=== PATIENT | female | born 1985 | race Caucasian/White ===

== ENCOUNTER 2019-09-15 07:30 | Emergency (ER) | payer BC, OTHER ==
[~2019-09-15] VITALS: Ht 162 cm; Wt 63.0 kg
[~2019-09-15 07:30] MED LIST: SULF-222 PO
[2019-09-15] MEDS ORDERED: LACTATED RINGERS 1,000 ML IV ONE ×2 (08:24→10:00)
[2019-09-15 08:39] LABS: BASOPHILS % (AUTO) 0 % (0-10); EOSINOPHILS # (AUTO) 0.2 10^3/uL (0.0-0.3); EOSINOPHILS % (AUTO) 2 % (0-10); HEMATOCRIT 38 % (35-52); HEMOGLOBIN 12.5 G/DL (11.5-16.0); LYMPHOCYTES # (AUTO) 1.1 X 10^3 (1.0-4.0); LYMPHOCYTES % (AUTO) 13 % (12-44); MEAN CORPUSCULAR HEMOGLOBIN 30 PG (25-34); MEAN CORPUSCULAR HGB CONC 33 G/DL (32-36); MEAN CORPUSCULAR VOLUME 90 FL (80-99); MEAN PLATELET VOLUME 12.8 FL (7.4-10.4); MONOCYTES # (AUTO) 0.5 X 10^3 (0.0-1.0); MONOCYTES % (AUTO) 6 % (0-12); NEUTROPHILS # (AUTO) 6.4 X 10^3 (1.8-7.8); NEUTROPHILS % (AUTO) 79 % (42-75); PLATELET COUNT 215 10^3/uL (130-400); RED CELL DISTRIBUTION WIDTH 13.4 % (10.0-14.5); WHITE BLOOD COUNT 8.1 10^3/uL (4.3-11.0)
[2019-09-15 08:51] LABS: ALANINE AMINOTRANSFERASE 65 U/L (0-55); ALBUMIN 3.6 GM/DL (3.2-4.5); ALKALINE PHOSPHATASE 107 U/L (40-136); BILIRUBIN,TOTAL 0.5 MG/DL (0.1-1.0); BUN/CREATININE RATIO 13; CALCIUM 8.9 MG/DL (8.5-10.1); CARBON DIOXIDE 20 MMOL/L (21-32); CHLORIDE 111 MMOL/L (98-107); CREATININE SERUM 0.72 MG/DL (0.60-1.30); GFR ESTIMATED > 60; GLUCOSE 87 MG/DL (70-105); MAGNESIUM 1.9 MG/DL (1.6-2.4); SODIUM 140 MMOL/L (135-145)
--- NOTE | 2019-09-15 09:02 | ED Syncope ---
General Chief Complaint: Dizziness/Syncope Stated Complaint: DIZZINESS;FAINTING Nursing Triage Note: PT STATES WOKE UP THIS AM AND HAD SYNCOPAL EPISODE, FELL AND HIT NOSE WHEN FELL. CONT TO BE DIZZY AT THIS X Source of Information: Patient Exam Limitations: No Limitations (DILLAN RYDER) History of Present Illness Date Seen by Provider: Sep 15, 2019 Time Seen by Provider: 07:57 Initial Comments This is a 35 y/o female here s/p 2-3 episodes of syncope x1 day. has been tired last night. Woke up this AM with severe watery diarrhea after which she had the syncopal episodes. 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 pt also reports frequent syncopal episodes in the summer 12/13 heat and dehydration. pt denies any preceding sx before LOC, bowel or bladder incontinence afterwards, hitting her head, or any seizure like episodes. Pt also denies any hematochezia, N/V, fever, chills, recent unexpected wt loss, dysuria, or hematuria. Pt does admit to feeling dizzy and notes she was not able to produce enough blood this AM to do a finger stick blood sugar test. Pt further denies recent easy bruising, leg swelling, vision loss, hair loss, easy/prolonged bleeding, or steatorrhea. Timing/Prior Episodes: Multiple Episodes Today, Other (multiple episodes this summer) Symptoms Prior to Episode: None Precipitating Factors: None Loss of Consciousness: Brief (Seconds) Current Symptoms: No Blurred Vision, No Chest Pain, No Diaphoresis; Dizziness; No Loss of Bladder Control, No Loss of Bowel Control, No Nausea; Pale (DILLAN RYDER) Initial Comments Here with report of brief episodes of syncope that occurred after watery diarrhea. Does have history of surgery as noted above and seems to have some problems with dehydration and/or heat tolerance. Reports taking her vitamins as directed. Denies blood in her urine or stool. Timing/Prior Episodes: Multiple Episodes Today Precipitating Factors: Other (bowel movement) Loss of Consciousness: Brief (Seconds) Current Symptoms: Pale, Weakness (BOWEN REYNOSO MD) Allergies and Home Medications Allergies Coded Allergies: No Known Drug Allergies (Unverified , 03/15/15) Home Medications No Active Prescriptions or Reported Meds Patient Home Medication List Home Medication List Reviewed: Yes (DILLAN RYDER) Home Medication List Reviewed: Yes (BOWEN REYNOSO MD) Review of Systems Constitutional: No chills, No diaphoresis; dizziness; No fever, No weight gain, No weight loss EENTM: No blurred vision, No double vision, No vision loss, No epistaxis Respiratory: No cough, No dyspnea on exertion, No hemoptysis, No orthopnea; short of breath Cardiovascular: No chest pain, No edema, No palpitations; syncope Gastrointestinal: No abdominal pain, No constipation; diarrhea; No jaundice, No nausea, No vomiting Genitourinary: No dysuria, No frequency, No hematuria, No incontinence Control/STD Prophylaxis: None Musculoskeletal: No muscle stiffness, No muscle cramps Skin: No dryness, No pruritus, No rash (DILLAN RYDER) Constitutional: see HPI Cardiovascular: see HPI; No chest pain, No edema Gastrointestinal: No abdominal pain, No nausea, No vomiting Genitourinary: no symptoms reported (BOWEN REYNOSO MD) All Other Systems Reviewed Negative Unless Noted: Yes (BOWEN REYNOSO MD) Past Gqjhijb-Dnxvwx-Vicjzj Hx Past Med/Social Hx: Reviewed Nursing Past Med/Soc Hx (BOWEN REYNOSO MD) Patient Social History Alcohol Use: Denies Use Recreational Drug Use: No Smoking Status: Never a Smoker Recent Foreign Travel: No Contact w/Someone Who Travel: No Recent Infectious Disease Expo: No Recent Hopitalizations: No Physical Abuse: No Sexual Abuse: No (DILLAN RYDER) Seasonal Allergies Seasonal Allergies: No (DILLAN RYDER) Past Medical History Surgeries: Yes (duodenal switch, oral surg) Adenoidectomy, Gallbladder, Tonsillectomy Respiratory: No Cardiac: No Neurological: No Reproductive Disorders: No Gastrointestinal: Yes Irritable Bowel Musculoskeletal: No Endocrine: No Cancer: No Psychosocial: No Integumentary: No Blood Disorders: No Adverse Reaction/Blood Tranf: No (DILLAN RYDER) Family Medical History Reviewed Nursing Family Hx (BOWEN REYNOSO MD) Physical Exam Vital Signs Vital Signs - First Documented 09/15/19 07:35 Temp 35.8 Pulse 67 Resp 18 B/P (MAP) 102/59 (73) Pulse Ox 100 (BOWEN REYNOSO MD) Vital Signs Capillary Refill : Less Than 3 Seconds (DILLAN RYDER [facility]) Height, Weight, BMI Height: 5'4" Weight: 290lbs. oz. 131.448950ue; 24.00 BMI Method:Stated General Appearance: No Apparent Distress, WD/WN HEENT: Normal ENT Inspection, Pharynx Normal, Pale Conjunctivae (R) Neck: Normal Inspection, Non Tender, Supple Cardiovascular: Regular Rate, Rhythm, No Edema, No Gallop, No JVD, No Murmur, Normal Peripheral Pulses Respiratory: Chest Non Tender, Lungs Clear, Normal Breath Sounds, No Accessory Muscle Use, No Respiratory Distress Gastrointestinal: Normal Bowel Sounds, No Organomegaly, No Pulsatile Mass, Non Tender, Soft Back: Normal Inspection, No CVA Tenderness, No Vertebral Tenderness Extremities: Normal Capillary Refill, Normal Inspection, Normal Range of Motion, Non Tender, No Calf Tenderness, No Pedal Edema Neurologic/Psychiatric: Alert, Oriented x3 Cranial Nerves: Normal Hearing, Normal Speech, PERRL Motor/Sensory: No Motor Deficit, No Sensory Deficit Skin: Warm/Dry; No Ecchymosis, No Jaundice; Pallor Lymphatic: No Adenopathy (DILLAN RYDER [facility]) General Appearance: No Apparent Distress, WD/WN HEENT: PERRL/EOMI, Pharynx Normal Neck: Non Tender, Supple Cardiovascular: Regular Rate, Rhythm, No Murmur Respiratory: Lungs Clear, Normal Breath Sounds Gastrointestinal: Non Tender, Soft Back: Normal Inspection, No CVA Tenderness, No Vertebral Tenderness Extremities: Normal Range of Motion, Non Tender Neurologic/Psychiatric: Alert, Oriented x3 Cranial Nerves: Normal Hearing, Normal Speech, PERRL Motor/Sensory: No Motor Deficit, No Sensory Deficit Skin: Warm/Dry, Pallor (BOWEN REYNOSO MD) Progress/Results/Core Measures Results/Orders Lab Results Laboratory Tests Test 09/15/19 07:40 09/15/19 10:18 Range/Units White Blood Count 8.1 4.3-11.0 10^3/uL Red Blood Count 4.22 L 4.35-5.85 10^6/uL Hemoglobin 12.5 11.5-16.0 G/DL Hematocrit 38 35-52 % Mean Corpuscular Volume 90 80-99 FL Mean Corpuscular Hemoglobin 30 25-34 PG Mean Corpuscular Hemoglobin Concent 33 32-36 G/DL Red Cell Distribution Width 13.4 10.0-14.5 % Platelet Count 215 130-400 10^3/uL Mean Platelet Volume 12.8 H 7.4-10.4 FL Neutrophils (%) (Auto) 79 H 42-75 % Lymphocytes (%) (Auto) 13 12-44 % Monocytes (%) (Auto) 6 0-12 % Eosinophils (%) (Auto) 2 0-10 % Basophils (%) (Auto) 0 0-10 % Neutrophils # (Auto) 6.4 1.8-7.8 X 10^3 Lymphocytes # (Auto) 1.1 1.0-4.0 X 10^3 Monocytes # (Auto) 0.5 0.0-1.0 X 10^3 Eosinophils # (Auto) 0.2 0.0-0.3 10^3/uL Basophils # (Auto) 0.0 0.0-0.1 10^3/uL Sodium Level 140 135-145 MMOL/L Potassium Level 4.0 3.6-5.0 MMOL/L Chloride Level 111 H 98-107 MMOL/L Carbon Dioxide Level 20 L 21-32 MMOL/L Anion Gap 9 5-14 MMOL/L Blood Urea Nitrogen 9 7-18 MG/DL Creatinine 0.72 0.60-1.30 MG/DL Estimat Glomerular Filtration Rate > 60 BUN/Creatinine Ratio 13 Glucose Level 87 70-105 MG/DL Calcium Level 8.9 8.5-10.1 MG/DL Corrected Calcium 9.2 8.5-10.1 MG/DL Magnesium Level 1.9 1.6-2.4 MG/DL Total Bilirubin 0.5 0.1-1.0 MG/DL Aspartate Amino Transf (AST/SGOT) 56 H 5-34 U/L Alanine Aminotransferase (ALT/SGPT) 65 H 0-55 U/L Alkaline Phosphatase 107 40-136 U/L Total Protein 6.0 L 6.4-8.2 GM/DL Albumin 3.6 3.2-4.5 GM/DL Thyroid Stimulating Hormone (TSH) 0.16 L 0.35-4.94 UIU/ML Free Thyroxine 0.71 0.70-1.48 NG/DL Urine Color YELLOW Urine Clarity CLEAR Urine pH 6 5-9 Urine Specific [place] 1.015 L 1.016-1.022 Urine Protein 1+ H NEGATIVE Urine Glucose (UA) NEGATIVE NEGATIVE Urine Ketones NEGATIVE NEGATIVE Urine Nitrite NEGATIVE NEGATIVE Urine Bilirubin NEGATIVE NEGATIVE Urine Urobilinogen NORMAL NORMAL MG/DL Urine Leukocyte Esterase 1+ H NEGATIVE Urine RBC (Auto) NEGATIVE NEGATIVE Urine RBC NONE /HPF Urine WBC 2-5 /HPF Urine Squamous Epithelial Cells 2-5 /HPF Urine Crystals NONE /LPF Urine Bacteria FEW H /HPF Urine Casts NONE /LPF Urine Mucus MODERATE H /LPF Urine Culture Indicated YES (BOWEN REYNOSO MD) My Orders Orders - BOWEN REYNOSO MD Cbc With Automated Diff (09/15/19 08:24) Comprehensive Metabolic Panel (09/15/19 08:24) Magnesium (09/15/19 08:24) Thyroid Stimulating Hormone (09/15/19 08:24) Ua Culture If Indicated (09/15/19 08:24) Ed Iv/Invasive Line Start (09/15/19 08:24) Lactated Ringers (Lr 1000 Ml Iv Solution (09/15/19 08:24) Urine Bedside (09/15/19 08:24) Ekg Tracing (09/15/19 08:24) Free T4 (Free Thyroxine) (09/15/19 09:20) Lactated Ringers (Lr 1000 Ml Iv Solution (09/15/19 10:00) Urine Culture (09/15/19 10:18) (BOWEN REYNOSO MD) Medications Given in ED Current Medications Medications Dose Ordered Sig/Jaxon Route Start Time Stop Time Status Last Admin Dose Admin Lactated Ringer's 1,000 ml @ 0 mls/hr Q0M ONCE IV 09/15/19 08:24 09/15/19 08:30 DC 09/15/19 08:40 1,000 MLS/HR Lactated Ringer's 1,000 ml @ 0 mls/hr Q0M ONCE IV 09/15/19 10:00 09/15/19 10:01 DC 09/15/19 10:15 1,000 MLS/HR (BOWEN REYNOSO MD) Vital Signs/I&O 09/15/19 07:35 Temp 35.8 Pulse 67 Resp 18 B/P (MAP) 102/59 (73) Pulse Ox 100 (BOWEN REYNOSO MD) Blood Pressure Mean: 73 POS Progress Progress Note : Time: 07:57 Progress Note 1)Seen and evaluated pt. pt has findings consistent with dehydration as well as anemia. Will evaluate pt for anemia, dehydration, electrolyte abnormalities, liver and thyroid dysfunction, and . Will give IVF LR, and test CBC, CMP, EKG. May need outpatient Iron and B12 studies. All the findings and concerns were discussed with patient and family who agree with plan. 2)Pt feeling better after IVF. CBC was normal. CMP was remarkable for low TSH and mildly low total protein and moderate transaminitis. Will order Free T4 levels at this time. test still pending. (DILLAN RYDER) Progress Note : Progress Note Have seen and evaluated the patient and agree with above except as indicated. I have directed the plan of care. Patient is here with concerns of dehydration and syncope. Orthostatic vital signs done and are positive with respect to heart rate increasing greater than 20 points on standing. IV, labs, UA and UCG ordered. LR 1 L bolus ordered. 0930: TSH is low and we will evaluate free T4. Hemoglobin normal. Patient is feeling a little better. Monitor patient. 1105: Overall feeling better. Fluids nearly complete. She reports that she now follows at the [facility] for [facility] I will send a copy of the chart over to the [facility] to be put in her records. Free T4 is normal. She may need further workup related to thyroid but at this point everything else looks okay and she may be safely discharged home. Patient agrees. Discharged home with return precautions. Patient verbalize understanding instructions and a greement with plan. (BOWEN REYNOSO MD) Initial ECG Impression Date: Sep 15, 2019 Initial ECG Impression Time: 08:41 Initial ECG Rate: 61 Initial ECG Rhythm: Normal Sinus Initial ECG Impression: Normal Initial ECG Comparisson: No Previous ECG Available Comment Sinus rhythm with normal axis. No evidence of ST elevation [place]. No previous available for comparison. Interpreted by me. (BOWEN REYNOSO MD) Departure Impression Primary Impression: Dehydration Additional Impression: Syncope Qualified Codes: R55 - Syncope and collapse Disposition: 01 HOME, SELF-CARE Condition: Improved Departure-Patient Inst. Decision time for Depature: 11:09 (BOWEN REYNOSO MD) Referrals: JAMES ADHIKARI MD (PCP/Family) Primary Care Physician [facility] [place] Patient Instructions: Syncope (Fainting) (DC), Dehydration, Adult (DC) Add. Discharge Instructions: All discharge instructions reviewed with patient and/or family. Voiced understanding. Ensure your drinking an adequate amount of fluids and continue your diet. Continue your vitamin replacement as previously prescribed by your doctor. Follow-up with your doctor this week for recheck and further evaluation. Return for worse pain, fever, vomiting, weakness, breathing problems or other concerns as needed. Scripts No Active Prescriptions or Reported Meds Copy Copies To 1: TAMICA DAMON [facility] Sep 15, 2019 09:02 BOWEN BANSAL MD Sep 15, 2019 09:31 POS
[2019-09-15 10:26] LABS: BILIRUBIN,URINE NEGATIVE (NEGATIVE); CLARITY,URINE CLEAR; COLOR,URINE YELLOW; GLUCOSE, URINE (UA) NEGATIVE (NEGATIVE); KETONES,URINE NEGATIVE (NEGATIVE); LEUKOCYTE ESTERASE ,URINE 1+ (NEGATIVE); NITRITE,URINE NEGATIVE (NEGATIVE); PH,URINE 6 (5-9); PROTEIN,URINE 1+ (NEGATIVE)
[2019-09-15 10:39] LABS: BACTERIA,URINE FEW /HPF
[2019-09-15 11:24] VITALS: BP 113/69
== END 2019-09-15 11:28 | disposition home or self-care (01) ==
LOC: EDUNIT# 07:30 → ER 07:31
DX: E86.0 Dehydration (principal); R55 Syncope and collapse; Z90.89 Acquired absence of other organs; K58.9 Irritable bowel syndrome, unspecified
CPT/HCPCS: 36415; 80053; 81000; 83735; 84439; 84443; 85025; 87088; 93005

== ENCOUNTER 2021-01-31 06:58 | Emergency (ER) | payer BC ==
[~2021-01-31] VITALS: Ht 162.5 cm; Wt 68.1 kg
[2021-01-31] MEDS ORDERED: LACTATED RINGERS 1,000 ML IV ONE (07:30)
[2021-01-31 07:36] LABS: BASOPHILS % (AUTO) 1 % (0-10); EOSINOPHILS # (AUTO) 0.1 10^3/uL (0.0-0.3); EOSINOPHILS % (AUTO) 2 % (0-10); HEMATOCRIT 39 % (35-52); HEMOGLOBIN 13.2 g/dL (11.5-16.0); LYMPHOCYTES # (AUTO) 1.1 10^3/uL (1.0-4.0); LYMPHOCYTES % (AUTO) 24 % (12-44); MEAN CORPUSCULAR HEMOGLOBIN 30 pg (25-34); MEAN CORPUSCULAR HGB CONC 34 g/dL (32-36); MEAN CORPUSCULAR VOLUME 90 fL (80-99); MEAN PLATELET VOLUME 11.7 fL (9.0-12.2); MONOCYTES # (AUTO) 0.4 10^3/uL (0.0-1.0); MONOCYTES % (AUTO) 9 % (0-12); NEUTROPHILS % (AUTO) 64 % (42-75); PLATELET COUNT 245 10^3/uL (130-400); WHITE BLOOD COUNT 4.7 10^3/uL (4.3-11.0)
--- NOTE | 2021-01-31 07:42 | ED Syncope ---
General Chief Complaint: Dizziness/Syncope Stated Complaint: DIZZY,PASSING OUT Nursing Triage Note: AMB TO ED WTIH PATIENT REPORTS THAT SHE PASSED OUT AND FELL DOWN APX 6 STAIRS. HAD COVID IN JUN AND RECIEVED HER COVID VACCINE 2 WEEKS AGO. HAD SAME EPISOID 1 YEAR AGO DUE TO DEYHDRATION. DR HANSON TO ROOM PLACED C COLLAR ON PATIENT Source of Information: Patient Exam Limitations: No Limitations History of Present Illness Date Seen by Provider: Jan 31, 2021 Time Seen by Provider: 07:07 Initial Comments This 35-year-old woman presents to the emergency room after having a syncopal episode at home and falling down 6 stairs. She has been feeling lightheaded recently. She has a history of intermittent syncope which has been worked up with an outpatient sr. vendor management associate. She states no findings were reported to her. It was speculated previously that syncopal episodes were due to dehydration. She has had a history of bariatric surgery and significant weight loss over the last 2 years. She had COVID-19 infection in June and received her first COVID-19 vaccination 2 weeks ago. She reports a recent URI but denies any acute infectious symptoms aside from syncope at this time. She is afebrile. She denies as her has had vasectomy. Oropharynx appears somewhat dry. Allergies and Home Medications Allergies Coded Allergies: No Known Drug Allergies (Unverified , 03/15/15) Home Medications No Active Prescriptions or Reported Meds Patient Home Medication List Home Medication List Reviewed: Yes Review of Systems Constitutional: dizziness; No fever; weakness EENTM: see HPI Respiratory: no symptoms reported Cardiovascular: see HPI Gastrointestinal: see HPI Genitourinary: no symptoms reported : No Control/STD Prophylaxis: Other ( had vasectomy) Musculoskeletal: no symptoms reported Skin: no symptoms reported Psychiatric/Neurological: No Symptoms Reported Past Qhzktrs-Edhzdw-Antpbp Hx Past Med/Social Hx: Reviewed Nursing Past Med/Soc Hx Patient Social History Alcohol Use: Occasionally Uses Smoking Status: Never a Smoker Recent Infectious Disease Expo: No Recent Hopitalizations: No Seasonal Allergies Seasonal Allergies: No Past Medical History Surgeries: Yes (duodenal switch, oral surg) Adenoidectomy, Gallbladder, Tonsillectomy Respiratory: No Cardiac: Yes Syncope Neurological: No Reproductive Disorders: No Gastrointestinal: Yes Irritable Bowel Musculoskeletal: No Endocrine: No Cancer: No Psychosocial: No Integumentary: No Blood Disorders: No Adverse Reaction/Blood Tranf: No Physical Exam Vital Signs Vital Signs - First Documented 01/31/21 07:17 Temp 35.8 Pulse 59 Resp 18 B/P (MAP) 111/56 (74) Pulse Ox 100 O2 Delivery Room Air Capillary Refill : Less Than 3 Seconds Height, Weight, BMI Height: 5'4" Weight: 290lbs. oz. 131.193865qh; 25.00 BMI Method:Stated General Appearance: No Apparent Distress, WD/WN HEENT: PERRL/EOMI, Normal ENT Inspection, Other (Mucous membranes somewhat dry) Neck: Normal Inspection Cardiovascular: Regular Rate, Rhythm, No Edema, No Murmur Respiratory: Lungs Clear, Normal Breath Sounds, No Accessory Muscle Use, No Respiratory Distress, Other (Anterior chest wall tender to palpation) Gastrointestinal: Normal Bowel Sounds, Non Tender, Soft Back: Normal Inspection, Vertebral Tenderness (Lower thoracic spine and upper lumbar spine) Extremities: Normal Inspection, No Pedal Edema, Other (Slight tenderness over the musculature of the left lateral thigh and buttock. 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 No focal deficits identified) Cranial Nerves: Normal Hearing, Normal Speech, PERRL Coordination/Gait: Normal Finger to Nose Motor/Sensory: No Motor Deficit, No Sensory Deficit Skin: Normal Color, Warm/Dry Progress/Results/Core Measures Results/Orders Lab Results Laboratory Tests Test 01/31/21 07:30 01/31/21 09:40 Range/Units White Blood Count 4.7 4.3-11.0 10^3/uL Red Blood Count 4.38 3.80-5.11 10^6/uL Hemoglobin 13.2 11.5-16.0 g/dL Hematocrit 39 35-52 % Mean Corpuscular Volume 90 80-99 fL Mean Corpuscular Hemoglobin 30 25-34 pg Mean Corpuscular Hemoglobin Concent 34 32-36 g/dL Red Cell Distribution Width 12.1 10.0-14.5 % Platelet Count 245 130-400 10^3/uL Mean Platelet Volume 11.7 9.0-12.2 fL Immature Granulocyte % (Auto) 0 % Neutrophils (%) (Auto) 64 42-75 % Lymphocytes (%) (Auto) 24 12-44 % Monocytes (%) (Auto) 9 0-12 % Eosinophils (%) (Auto) 2 0-10 % Basophils (%) (Auto) 1 0-10 % Neutrophils # (Auto) 3.0 1.8-7.8 10^3/uL Lymphocytes # (Auto) 1.1 1.0-4.0 10^3/uL Monocytes # (Auto) 0.4 0.0-1.0 10^3/uL Eosinophils # (Auto) 0.1 0.0-0.3 10^3/uL Basophils # (Auto) 0.0 0.0-0.1 10^3/uL Immature Granulocyte # (Auto) 0.0 0.0-0.1 10^3/uL Prothrombin Time 13.8 12.2-14.7 SEC INR Comment 1.0 0.8-1.4 Activated Partial Thromboplast Time 25 24-35 SEC Sodium Level 139 135-145 MMOL/L Potassium Level 3.7 3.6-5.0 MMOL/L Chloride Level 109 H 98-107 MMOL/L Carbon Dioxide Level 22 21-32 MMOL/L Anion Gap 8 5-14 MMOL/L Blood Urea Nitrogen 7 7-18 MG/DL Creatinine 0.82 0.60-1.30 MG/DL Estimat Glomerular Filtration Rate > 60 BUN/Creatinine Ratio 9 Glucose Level 88 70-105 MG/DL Calcium Level 8.6 8.5-10.1 MG/DL Corrected Calcium 8.4 L 8.5-10.1 MG/DL Magnesium Level 2.2 1.6-2.4 MG/DL Total Bilirubin 0.6 0.1-1.0 MG/DL Aspartate Amino Transf (AST/SGOT) 50 H 5-34 U/L Alanine Aminotransferase (ALT/SGPT) 65 H 0-55 U/L Alkaline Phosphatase 106 40-136 U/L Myoglobin 50.7 10.0-92.0 NG/ML Troponin I < 0.028 <0.028 NG/ML Total Protein 6.9 6.4-8.2 GM/DL Albumin 4.2 3.2-4.5 GM/DL Serum Test, Qualitative NEGATIVE NEGATIVE Urine Color YELLOW Urine Clarity CLEAR Urine pH 6.0 5-9 Urine Specific [place] <=1.005 1.016-1.022 Urine Protein NEGATIVE NEGATIVE Urine Glucose (UA) NEGATIVE NEGATIVE Urine Ketones TRACE H NEGATIVE Urine Nitrite POSITIVE H NEGATIVE Urine Bilirubin NEGATIVE NEGATIVE Urine Urobilinogen 0.2 < = 1.0 MG/DL Urine Leukocyte Esterase NEGATIVE NEGATIVE Urine RBC (Auto) TRACE-I NEGATIVE Urine RBC 0-2 /HPF Urine WBC 2-5 /HPF Urine Squamous Epithelial Cells 10-25 H /HPF Urine Crystals NONE /LPF Urine Bacteria MODERATE H /HPF Urine Casts NONE /LPF Urine Mucus SMALL H /LPF Urine Yeast MODERATE H /HPF Urine Culture Indicated YES My Orders Orders - ELE MOJICA MD Cbc With Automated Diff (01/31/21 07:06) Magnesium (01/31/21 07:06) Chest 1 View, Ap/Pa Only (01/31/21 07:06) Ekg Tracing (01/31/21 07:06) Comprehensive Metabolic Panel (01/31/21 07:06) Myoglobin Serum (01/31/21 07:06) Protime With Inr (01/31/21 07:06) Partial Thromboplastin Time (01/31/21 07:06) O2 (01/31/21 07:06) Monitor-Rhythm Ecg Trace Only (01/31/21 07:06) Lipid Panel (02/01/21 06:00) Ed Iv/Invasive Line Start (01/31/21 07:06) Ct Head/Cervical Spine Wo (01/31/21 07:25) Ct Chest/Abdomen/Pelvis W (01/31/21 07:25) Lactated Ringers (Lr 1000 Ml Iv Solution (01/31/21 07:30) Troponin I (01/31/21 07:30) Iohexol Injection (Omnipaque 350 Mg/Ml 1 (01/31/21 07:45) Di Iv Start (Assessment) .IV start (01/31/21 07:38) Received Contrast (Hold Metformin- Contr (01/31/21 07:45) Sodium Chloride Flush (Catheter Flush Sy (01/31/21 07:45) Ns (Ivpb) (Sodium Chloride 0.9% Ivpb Bag (01/31/21 07:45) Hcg,Qualitative Serum (01/31/21 07:45) Orthostatic Vital Signs (Adult (01/31/21 08:21) Ondansetron Injection (Zofran Injectio (01/31/21 08:45) Ketorolac Injection (Toradol Injection) (01/31/21 09:30) Ua Culture If Indicated (01/31/21 09:25) Famotidine Injection (Pepcid Injection) (01/31/21 09:30) Urine Culture (01/31/21 09:40) Medications Given in ED Current Medications Medications Dose Ordered Sig/Jaxon Route Start Time Stop Time Status Last Admin Dose Admin Famotidine 20 mg ONCE ONCE IVP 01/31/21 09:30 01/31/21 09:31 DC 01/31/21 10:04 20 MG Iohexol 100 ml ONCE ONCE IV 01/31/21 07:45 01/31/21 07:46 DC 01/31/21 08:36 80 ML Ketorolac Tromethamine 15 mg ONCE ONCE IVP 01/31/21 09:30 01/31/21 09:31 DC 01/31/21 10:07 15 MG Lactated Ringer's 1,000 ml @ 0 mls/hr Q0M ONCE IV 01/31/21 07:30 01/31/21 07:31 DC 01/31/21 07:51 1,000 MLS/HR Ondansetron HCl 8 mg ONCE ONCE IVP 01/31/21 08:45 01/31/21 08:46 DC 01/31/21 08:42 8 MG Sodium Chloride 10 ml NEEDED PRN IV 01/31/21 07:45 01/31/21 08:36 10 ML Sodium Chloride 100 ml ONCE ONCE IV 01/31/21 07:45 01/31/21 07:46 DC 01/31/21 08:36 80 ML Vital Signs/I&O 01/31/21 01/31/21 01/31/21 07:17 09:36 11:42 Temp 35.8 Pulse 59 53 53 58 60 Resp 18 18 B/P (MAP) 111/56 (74) 105/63 (77) 116/84 113/76 (88) 103/69 (80) Pulse Ox 100 98 O2 Delivery Room Air Room Air Blood Pressure Mean: 74 Progress Progress Note #1: Time: 07:58 Progress Note Patient was seen and examined shortly after arrival. I inquired about neck pain to which she responded affirmatively. She does have posterior cervical spine tenderness. C-collar was immediately applied and C-spine precautions were followed. Patient was also rolled with C-spine precautions and found to have lower thoracic and lumbar spine tenderness. EKG was unremarkable. Labs and CT imaging are pending. IV fluids are infusing. Progress Note #2: Progress Note CT imaging revealed no serious injuries. Toradol was given for pain. Orthostatic pressures were unremarkable. Patient received the majority of a liter IV bolus. She did feel improved after treatment with fluids. We discussed possible etiologies of her syncopal episodes and lightheadedness. These tend to almost always happen early in the day after she gets up. We d iscussed strategies for managing that including hydrating well before bed, drinking before getting out of bed, perhaps having a little bit of caffeine in the morning, and getting up very carefully and slowly. Close follow-up was stressed. Initial ECG Impression Date: Jan 31, 2021 Initial ECG Impression Time: 07:12 Initial ECG Rate: 57 Initial ECG Rhythm: Normal Sinus Initial ECG Intervals: Normal Initial ECG Impression: Normal Comment Normal sinus rhythm with no ST elevation or depression. No abnormal intervals or axis deviation. Diagnostic Imaging Diagonstic Imaging: Xray Plain Films/CT/US/NM/MRI: chest Comments Chest x-ray reviewed by me and report reviewed. See report below: NAME: GEOVANI JETT MED REC#: [id number] PT STATUS: REG ER : 1985 PHYSICIAN: ELE MOJICA MD ADMIT DATE: 01/31/21/ER Draft Date of Exam:01/31/21 CHEST 1 VIEW, AP/PA ONLY Indication: Chest pain. Comparison: None Findings: Single view of the chest demonstrates clear lungs bilaterally. The heart is normal. There is no pneumothorax. Osseous structures normal. Impression: Negative chest Dictated on workstation # [id number] Dict: 01/31/21 0749 Trans: 01/31/21 0750 CV [id number] Interpreted by: MARIA EUGENIA FAUST Diagonstic Imaging: CT Plain Films/CT/US/NM/MRI: c-spine, head Comments CT head and cervical spine viewed by me and report reviewed. See report below: NAME: GEOVANI JETT [facility] REC#: [id number] PT STATUS: REG ER : 1985 PHYSICIAN: ELE MOJICA MD ADMIT DATE: 01/31/21/ER Draft Date of Exam:01/31/21 CT HEAD/CERVICAL SPINE WO PROCEDURE: CT head and CT cervical spine without contrast. TECHNIQUE: Multiple contiguous axial images were obtained through the brain and cervical spine without the use of intravenous contrast. Sagittal and coronal reformations through the cervical spine were then performed. Auto Exposure Controls were utilized during the CT exam to meet ALARA standards for radiation dose reduction. INDICATION: Fall down stairs. COMPARISON: None FINDINGS: CT HEAD: No intracranial hemorrhage, mass effect, hydrocephalus or extra-axial fluid collections. No CT evidence of a territorial infarction. Osseous structures are intact. Mild mucosal thickening in the ethmoid and right maxillary sinus. Mastoids are clear. CT cervical spine: Normal alignment. Vertebral body heights are preserved. No fractures. Mild degenerative endplate changes at C5-C6. No evidence of high-grade spinal canal stenosis. Paravertebral soft tissues are unremarkable. Lung apices are clear. IMPRESSION: No acute intracranial or cervical spine CT findings. Dictated on workstation # [id number] Dict: 01/31/21 0830 Trans: 01/31/21 0840 [facility] [id number] Interpreted by: HUAN GREGG MD Electronically signed by: Diagonsksenia Imaging: CT Plain Films/CT/US/NM/MRI: chest, abdomen, pelvis Comments CT chest, abdomen, and pelvis viewed by me and report reviewed. See report below: NAME: GEOVANI JETT [facility] REC#: [id number] PT STATUS: REG ER : 1985 PHYSICIAN: ELE MOJICA MD ADMIT DATE: 01/31/21/ER Signed Date of Exam:01/31/21 CT CHEST/ABDOMEN/PELVIS W PROCEDURE: CT chest, abdomen, and pelvis with contrast. TECHNIQUE: Multiple contiguous axial images were obtained through the chest, abdomen, and pelvis after the administration of intravenous contrast. Auto Exposure Controls were utilized during the CT exam to meet ALARA standards for radiation dose reduction. INDICATION: Trauma, fall downstairs. COMPARISON: None available. FINDINGS: Chest: Normal thyroid. No subclavicular axillary lymphadenopathy. No evidence of mediastinal hemorrhage. No mediastinal or hilar lymphadenopathy. Normal heart size without pericardial effusion. Normal caliber thoracic aorta without evidence of acute traumatic injury. No pleural effusion or pneumothorax. No pulmonary consolidations to indicate laceration or contusion. No acute rib fractures. No clavicle fracture are visualized. Sternum is intact. No fracture of the scapula on either side. Abdomen and pelvis: No free intraperitoneal air or fluid. The liver and spleen enhance normally without evidence of subcapsular hematoma or laceration. Cholecystectomy. The adrenals and pancreas are normal. The kidneys enhance symmetrically without evidence of traumatic injury. Delayed phase imaging demonstrates opacification of normal caliber ureters and the urinary bladder without evidence of ureteral injury or bladder rupture. Postoperative changes of gastric sleeve. No dilated loops of bowel. Normal caliber abdominal aorta without evidence of retroperitoneal hemorrhage. No abdominal or pelvic lymphadenopathy. No acute fracture of the pelvis or proximal femurs. Thoracolumbar spine: No acute fracture or traumatic malalignment. IMPRESSION: CT CHEST 1. No acute intrathoracic injury. 2. No fracture of the ribs or scapula. CT ABDOMEN and PELVIS 1. No acute traumatic injury in the abdomen or pelvis. 2. No fracture in the pelvis or proximal femurs. CT THORACOLUMBAR SPINE 1. No fracture in the thoracic or lumbar spine. Dictated by: Dictated on workstation # [id number] Dict: 01/31/21 0844 Trans: 01/31/21 0851 [facility] [id number] Interpreted by: GIOVANNI VALENTIN MD Electronically signed by: GIOVANNI VALENTIN MD 01/31/21 0851 Departure Impression Primary Impression: Orthostatic syncope Additional Impressions: Fall down stairs Qualified Codes: W10.8XXA - Fall (on) (from) other stairs and steps, initial encounter Neck pain Back pain Qualified Codes: M54.6 - Pain in thoracic spine Disposition: 01 HOME, SELF-CARE Condition: Improved Departure-Patient Inst. Decision time for Depature: 10:42 Referrals: CHARLEE VILLEDA MD FACP FAC CCDS EDY SCHROEDER MD, RICK D MD (PCP/Family) Primary Care Physician Patient Instructions: Orthostatic Hypotension, Syncope (Fainting) (DC) Add. Discharge Instructions: Your episodes of syncope (passing out) and lightheadedness may be due to orthostatic hypotension. This may be due to a primary a cardiovascular problem and/or insufficient hydration. Follow-up with your primary care provider and preferably a appraisal analyst as soon as possible. Discuss the possibility of a tilt table test for further evaluation. Drink plenty of clear liquids and lightly salt your food to help support your blood pressure. Drink some clear liquids first thing in the morning and perhaps a small quantity of caffeine to help support hydration, blood pressure, and heart rate. Get up slowly and carefully after sleeping or lying down. Call with questions or concerns. Return to the emergency room if you have worsening problems or recurrent lightheadedness or syncope. All discharge instructions reviewed with patient and/or family. Voiced understanding. Scripts No Active Prescriptions or Reported Meds Work/School Note: Work Release Form Date Seen in the Emergency Department: Jan 31, 2021 Return to Work: Feb 02, 2021 Other Restrictions Listed Below: Stop activity and rest if feeling lightheaded. Copy Copies To 1: JAMES ADHIKARI MD, JOSHUA T MD Jan 31, 2021 07:42
[2021-01-31] MEDS ORDERED: NS 100 ML (IVPB) BAG IV ONE (07:45)
[2021-01-31] MEDS ORDERED: HOLD METFORMIN - RECEIVED CONTRAST 20 ML VIAL IV SCH (07:45)
[2021-01-31] MEDS ORDERED: IOHEXOL 350 MG/ML 100 ML (OMNIPAQUE 350) VIAL IV ONE (07:45)
[2021-01-31] MEDS ORDERED: CATHETER FLUSH 10 ML SYR IV PRN (07:45)
--- NOTE | 2021-01-31 07:50 | Diagnostic Imaging Report ---
Indication: Chest pain. Comparison: None Findings: Single view of the chest demonstrates clear lungs bilaterally. The heart is normal. There is no pneumothorax. Osseous structures normal. Impression: Negative chest Dictated by: Dictated on workstation # [id number]
[2021-01-31 08:07] LABS: ALANINE AMINOTRANSFERASE 65 U/L (0-55); ALBUMIN 4.2 GM/DL (3.2-4.5); ALKALINE PHOSPHATASE 106 U/L (40-136); BILIRUBIN,TOTAL 0.6 MG/DL (0.1-1.0); BUN/CREATININE RATIO 9; CALCIUM 8.6 MG/DL (8.5-10.1); CARBON DIOXIDE 22 MMOL/L (21-32); CHLORIDE 109 MMOL/L (98-107); CREATININE SERUM 0.82 MG/DL (0.60-1.30); GFR ESTIMATED > 60; GLUCOSE 88 MG/DL (70-105); MAGNESIUM 2.2 MG/DL (1.6-2.4); POTASSIUM 3.7 MMOL/L (3.6-5.0); SODIUM 139 MMOL/L (135-145); TOTAL PROTEIN 6.9 GM/DL (6.4-8.2)
[2021-01-31 08:08] LABS: PROTHROMBIN TIME PATIENT 13.8 SEC (12.2-14.7)
--- NOTE | 2021-01-31 08:41 | Diagnostic Imaging Report ---
PROCEDURE: CT head and CT cervical spine without contrast. TECHNIQUE: Multiple contiguous axial images were obtained through the brain and cervical spine without the use of intravenous contrast. Sagittal and coronal reformations through the cervical spine were then performed. Auto Exposure Controls were utilized during the CT exam to meet ALARA standards for radiation dose reduction. INDICATION: Fall down stairs. COMPARISON: None FINDINGS: CT HEAD: No intracranial hemorrhage, mass effect, hydrocephalus or extra-axial fluid collections. No CT evidence of a territorial infarction. Osseous structures are intact. Mild mucosal thickening in the ethmoid and right maxillary sinus. Mastoids are clear. CT cervical spine: Normal alignment. Vertebral body heights are preserved. No fractures. Mild degenerative endplate changes at C5-C6. No evidence of high-grade spinal canal stenosis. Paravertebral soft tissues are unremarkable. Lung apices are clear. IMPRESSION: No acute intracranial or cervical spine CT findings. Dictated by: Dictated on workstation # [id number]
[2021-01-31] MEDS ORDERED: ONDANSETRON 4 MG/2 ML (SDV) Z0FRAN IVP ONE (08:45)
--- NOTE | 2021-01-31 08:53 | Diagnostic Imaging Report ---
PROCEDURE: CT chest, abdomen, and pelvis with contrast. TECHNIQUE: Multiple contiguous axial images were obtained through the chest, abdomen, and pelvis after the administration of intravenous contrast. Auto Exposure Controls were utilized during the CT exam to meet ALARA standards for radiation dose reduction. INDICATION: Trauma, fall downstairs. COMPARISON: None available. FINDINGS: Chest: Normal thyroid. No subclavicular axillary lymphadenopathy. No evidence of mediastinal hemorrhage. No mediastinal or hilar lymphadenopathy. Normal heart size without pericardial effusion. Normal caliber thoracic aorta without evidence of acute traumatic injury. No pleural effusion or pneumothorax. No pulmonary consolidations to indicate laceration or contusion. No acute rib fractures. No clavicle fracture are visualized. Sternum is intact. No fracture of the scapula on either side. Abdomen and pelvis: No free intraperitoneal air or fluid. The liver and spleen enhance normally without evidence of subcapsular hematoma or laceration. Cholecystectomy. The adrenals and pancreas are normal. The kidneys enhance symmetrically without evidence of traumatic injury. Delayed phase imaging demonstrates opacification of normal caliber ureters and the urinary bladder without evidence of ureteral injury or bladder rupture. Postoperative changes of gastric sleeve. No dilated loops of bowel. Normal caliber abdominal aorta without evidence of retroperitoneal hemorrhage. No abdominal or pelvic lymphadenopathy. No acute fracture of the pelvis or proximal femurs. Thoracolumbar spine: No acute fracture or traumatic malalignment. IMPRESSION: CT CHEST 1. No acute intrathoracic injury. 2. No fracture of the ribs or scapula. CT ABDOMEN and PELVIS 1. No acute traumatic injury in the abdomen or pelvis. 2. No fracture in the pelvis or proximal femurs. CT THORACOLUMBAR SPINE 1. No fracture in the thoracic or lumbar spine. Dictated by: Dictated on workstation # [id number]
[2021-01-31] MEDS ORDERED: KETOROLAC 30 MG/ML VIAL IVP ONE (09:30)
[2021-01-31] MEDS ORDERED: FAMOTIDINE 20MG/2ML IV (PEPCID) IVP ONE (09:30)
[2021-01-31 09:36] VITALS: BP_SYST 103; BP_SYST 105; BP_SYST 113; BP_DIAS 63; BP_DIAS 69; BP_DIAS 76
[2021-01-31 09:45] LABS: BILIRUBIN,URINE NEGATIVE (NEGATIVE); CLARITY,URINE CLEAR; COLOR,URINE YELLOW; GLUCOSE, URINE (UA) NEGATIVE (NEGATIVE); KETONES,URINE TRACE (NEGATIVE); LEUKOCYTE ESTERASE ,URINE NEGATIVE (NEGATIVE); NITRITE,URINE POSITIVE (NEGATIVE); PROTEIN,URINE NEGATIVE (NEGATIVE)
[2021-01-31 10:08] LABS: BACTERIA,URINE MODERATE /HPF; RBC,URINE 0-2 /HPF; YEAST,URINE MODERATE /HPF
[2021-01-31 11:42] VITALS: BP 116/84
== END 2021-01-31 11:42 | disposition home or self-care (01) ==
LOC: EDUNIT# 06:58 → ER 07:02
DX: R55 Syncope and collapse (principal); M54.2 Cervicalgia; M54.6 Pain in thoracic spine; M54.5 Low back pain
CPT/HCPCS: 36415; 70450; 71045; 71260; 72125; 74177; 80053; 81000; 83735; 83874; 84484; 84703; 85025; 85610; 85730; 87077; 87088; 93005; 93041